=== PATIENT | female | born 1960 | race Asian ===

== ENCOUNTER → 2016-11-21 | Outpatient (CLI) | payer BC ==
[~2016-11-21] MED LIST: ALBUTEROL17 GM INH; AMOXICILLIN PO; BACTRIM DS TABL1 TA1 PO; BLOOD PRESSURE1 EAC1; CIPRO PO; FLAGYL PO; K-DUR20 ME1 PO; PHENERGAN PO; PREDNISONE PO; PYRIDIUM PO; TYLOX1 CAP 5/50 PO; VIBRAMYCIN100 M1 PO
--- NOTE | ~2016-11-21 | MY11 ---
[facility] A Service of [facility] RADIOLOGY TEXT RESULTS PATIENT: SHANTI GOLDMAN LOCATION: [facility] : 58 UNIT #: [id number] AGE: [address]: Dipika Castorena MD SEX: F ORDER DR: [id number] [facility] [address] [place], [place] [address] [id number] O MR#: [id number] Acc #: [id number] NAME: SHANTI GOLDMAN : 1960 SEX: F STUDY DATE/TIME: 11/21/2016 8:24 UNIT: [facility] ROOM: STUDY DESCRIPTION: MY Mammogram Screening Dig [place] Attending Physician: Dipika Castorena M.D. Ordering Physician: Dipika Castorena M.D. Primary Care Physician: Dipika Castorena M.D. MEDICAL IMAGING REPORT This report is preliminary unless electronic signature is present EXAM Digital screening mammogram, 11/21/2016, [facility]. HISTORY 56-year-old woman no risk elevation. Annual screen. COMPARISON Mammograms 05/07/2015 with followup diagnostic right breast imaging 06/23/2015. TECHNIQUE Digital imaging of each breast was completed utilizing screening protocol. Review includes FDA-approved CAD device. FINDINGS Breast parenchyma is heterogeneous with a small nodular parenchymal pattern again noted. Slight dominance in the subareolar right breast location is stable. There is no interval occurring mass. There are no suspicious microcalcifications and no architectural deformity. IMPRESSION Negative mammogram. Annual screening recommended. Patients over the age of 40 are entered into a reminder system with target due date for the next mammogram. A result letter will also be sent to the patient. BIRADS: 1 Negative Dictated by... Mike Barragan M.D. [facility] A Service [facility] RADIOLOGY TEXT RESULTS PATIENT: SHANTI GOLDMAN LOCATION: [facility] : 58 UNIT #: [id number] AGE: [address]: Dipika Castorena MD SEX: F ORDER DR: THIS IS AN ELECTRONICALLY VERIFIED REPORT Mike Barragan M.D. at 11/21/2016 10:21 AM MANJEET/giorgi TD: 11/21/2016 09:48 JOB #: [id number] MEDICAL IMAGING REPORT Page 1 of 1 COPY
== END | disposition home or self-care (01) ==
LOC: CWCC 08:15
DX: Z12.31 Encounter for screening mammogram for malignant neoplasm of breast (principal)
CPT/HCPCS: G0202